=== PATIENT | male | born 1980 | race Caucasian/White ===

== ENCOUNTER 2016-04-18 16:44 | Emergency (ER) | payer BC ==
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
[2016-04-18] MEDS: KETOROLAC 30 MG/1 ML VIAL IVP ONE (17:10)
[2016-04-18] MEDS: LORazepam 2 MG/1 ML VIAL IVP ONE (17:11)
[2016-04-18] MEDS: NORMAL SALINE 10 ML SYRINGE FLUSH IVP PRN (17:13)
[2016-04-18] MEDS: CHLORPROMAZINE IM ONE (18:02)
[2016-04-18 18:36] VITALS: RESP 18; TEMP 97.2
[2016-04-18] MEDS: BACLOFEN 20 MG TABLET PO ONE (20:15)
== END 2016-04-18 20:19 | disposition home or self-care (01) ==
LOC: ER 16:44
DX: R06.6 Hiccough (principal)
CPT/HCPCS: 96372; 96374; 96375; 99282; 99283; J1885; J2360; J3230; J2060

== ENCOUNTER → 2016-04-21 | Outpatient (CLI) | payer OTHER, BC ==
--- NOTE | 2016-04-22 09:11 | DI ---
SPECT/CT L-SPINE W/O CONTRAST,04/21/2016 4:38 PM: Clinical History: Pelvic pain in a male. Previous Exam: None at this facility. Radiopharmaceutical: 29.0 mCi of technetium 99m MDP Findings: Multiple whole body images are obtained 2 hours after the administration of the radiopharmaceutical, and demonstrate normal uptake within the kidneys and urinary bladder. The chest also demonstrates multiple coned-down used. There are also coned-down views of the pelvis demonstrating no abnormally increased uptake. CT images were also obtained and fused, and demonstrate small bilateral pleural effusions. There is a groundglass density within the right upper lobe which is not well circumscribed, but measures approx imately 17 mm in diameter. There are no rib fractures. The thoracic spine is normal. There is a large amount of stool throughout the entire colon. There are several prominent lymph nodes within the right lower quadrant none of which are pathologic by size criteria. The appendix is crystal l. The urinary bladder is unremarkable. Impression: No focal increased uptake within the bony structures. A few mesenteric lymph nodes noted within the right lower quadrant which meet diagnostic criteria for mesenteric adenitis however, this is a clinical diagnosis. Large amount of dried stool throughout colon.
== END ==
LOC: NM 15:45
PROVIDERS: ATTEND Nurse Practitioner Family
DX: M54.41 Lumbago with sciatica, right side (principal); R10.2 Pelvic and perineal pain; J90 Pleural effusion, not elsewhere classified; I88.0 Nonspecific mesenteric lymphadenitis
CPT/HCPCS: 72131; 72192; A9503

== ENCOUNTER 2016-04-24 14:32 | Emergency (ER) | payer OTHER, BC ==
[2016-04-24 14:53] VITALS: RESP 14; TEMP 98.8
[2016-04-24] MEDS ORDERED: CHLORPROMAZINE IM ONE (14:54)
[2016-04-24] MEDS ORDERED: diphenhydrAMINE 25 MG CAPSULE PO ONE (14:55)
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
== END 2016-04-24 15:39 | disposition home or self-care (01) ==
LOC: ER 14:32
DX: R06.6 Hiccough (principal)
CPT/HCPCS: 96372; 99282 ×2; J3230; Q0163

== ENCOUNTER → 2016-05-03 | Outpatient (CLI) | payer OTHER, BC ==
--- NOTE | 2016-05-03 13:14 | DI ---
CERVICAL SPINE SERIES, 05/03/2016 9:38 AM: Clinical History: Positive Ela's reflex. Previous Exam: None at this facility. Upright AP and lateral and upright lateral flexion and extension views are submitted. The vertebral b odies are normal in height and size. The disc spaces are normal. Posterior alignment and lateral mass es are normal with flexion and extension maneuvers. C1 articulates normally with C2 and the occiput. Prevertebral soft tissue planes are normal. Reading: Normal cervical spine series. Flexion and extension maneuvers show no instability.
--- NOTE | 2016-05-03 20:47 | DI ---
THORACIC SPINE SERIES, 05/03/2016 9:38 AM: Clinical History: Positive Ela's reflex. Previous Exam: None at this facility. Upright AP and lateral and upright lateral flexion and extension views are submitted. The vertebral b odies are of normal height and size with normal disc spaces. Pedicles and posterior elements are norm al. There are no paravertebral masses. No instability is noted with flexion and extension maneuvers. The visualized portions of both lungs are normal. Reading: Normal thoracic spine series. There is no instability noted with flexion and extension maneuvers.
--- NOTE | 2016-05-03 21:08 | DI ---
LUMBAR SPINE SERIES, 05/03/2016 9:38 AM: Clinical History: Acute right-sided low back pain with right-sided sciatica. Previous Exam: None at this facility. Upright AP and lateral and upright lateral flexion and extension views are submitted. The vertebral b odies are of normal height and size. There is complete lumbarization of S1 with a disc space between S1 and S2. The lumbar disc spaces are of normal height. Posterior alignment is normal and there is no instability present with flexion and extension maneuvers although the patient actually did barely ch tiffnaie positions between flexion and extension. The pedicles and posterior elements are normal. Both SI joints are normal. Readin. Normal lumbar spine series. No instability is noted with flexion and extension maneuvers. 2. There is complete lumbarization of S1 and there is a disc space between S1 and S2.
--- NOTE | 2016-05-04 09:50 | DI ---
MRI CERVICAL SPINE SCAN, 05/03/2016 9:38 AM: Clinical History: Positive Ela's reflex. Previous Exam: None. Sequences: Sagittal T1and T2 weighted. Axial T2 PLUS and FE 3D DUAL. Coronal T1 scans through the upp er cervical spine. The vertebral bodies are of normal height and size. The disc spaces are of normal height and all cerv ical disc spaces show mild to moderate desiccation change. The cervical cord has a normal caliber and there is no evidence of an intramedullary focus of increased or decreased signal intensity. The cere bellar tonsils are in the normal position. The cervical disc spaces from C2-3 through C6-7 are normal . The remaining disc spaces from C7-T1 through T3-4 are also normal. Readin. There is no evidence of an intramedullary lesion or of an intradural extramedullary lesion. 2. The disc spaces from C2-3 through T3-4 are normal.
--- NOTE | 2016-05-04 12:41 | DI ---
MRI THORACIC SPINE SCAN, 05/03/2016 9:38 AM: Clinical History: Positive Ela's reflex. Previous Exam: None. Technique: Sagittal T1 and T2 weighted and STIR scans are supplemented with an axial angulated T1 and T2 weighted scans between T1 and T12-L1. The vitamin E marker capsule was placed over the point of m aximum pain indicated by the patient and this was at the level of T6. The vertebral bodies are of normal height and size. There is disc space narrowing at T4-5 and T5-6. T he remaining disc spaces are of normal height. There are no extradural lesions. There is no intradura l extramedullary or intramedullary lesion present. No facet arthropathy is identified. No paravertebr al masses are present. Reading: Chronic disc space narrowing at T4-5 and T5-6. The examination is otherwise normal.
== END ==
LOC: MRI 09:31
PROVIDERS: ATTEND Nurse Practitioner Family
DX: R29.2 Abnormal reflex (principal); M54.41 Lumbago with sciatica, right side; Q76.49 Other congenital malformations of spine, not associated with scoliosis
CPT/HCPCS: 72050; 72072; 72110; 72141; 72146

== ENCOUNTER → 2016-05-12 | Outpatient (CLI) | payer OTHER, BC ==
--- NOTE | 2016-05-12 17:15 | DI ---
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 Previous Exam: None at this facility. Sequences: Sagittal T1; Axial ANKITA T2 and FLAIR. Axial diffusion weighted images with ADC mapping were also performed. Axial flow sensitive black blood (FSBB) scans are performed. The 4th, 3rd, and lateral ventricles are of normal size, shape, position, and contour for this patien t's age. There are no focal areas of abnormally increased or decreased signal intensity. Susceptibili ty weighted imaging shows no evidence of hemosiderin deposition. There is no atrophy. There are no ex tracerebral mantels or shift of the midline structures. The paranasal sinuses are normal. Readin. Normal noncontrast MRI brain scan. 2. Diffusion weighted imaging with ADC mapping and susceptibility weighted imaging are normal.
== END ==
LOC: MRI 14:54
PROVIDERS: ATTEND Nurse Practitioner Family
DX: R41.3 Other amnesia (principal); S06.9X0S Unspecified intracranial injury without loss of consciousness, sequela
CPT/HCPCS: 70551

== ENCOUNTER → 2016-06-17 | Outpatient (CLI) | payer OTHER, BC ==
--- NOTE | 2016-06-17 15:10 | DI ---
RIGHT HIP JOINT INJECTION FOR MRI SCAN, 06/17/2016 1:02 PM: Clinical History: Right hip and groin pain. Previous Exam: None at this facility. A "time out" session was performed to verify the patient's name and date of prior to obtaining informed signed consent prior for this procedure. The patient was informed of benefits and risks, to include but not be limited to: allergies to medications (skin preparation agent, local anesthetic, an d contrast agent); joint infection; and joint pain following the procedure. The area was prepped with ChloraPrep solution. 1% lidocaine without epinephrine was used for intrader mal and subcutaneous local anesthesia. A 22 gauge spinal needle was introduced under fluoroscopy into the joint space with a single pass. No joint fluid could be aspirated. 12 mL of a mixture containing 2 mL of Omipaque 300 and 10 mL of normal saline was injected into the joint. Spot films of the area were obtained. The patient tolerated the procedure well and was transferred to the MRI scan suite for the MRI arthrogram. The patient was advised to watch for signs of an infection (including but not li mited to: redness, swelling, or fever). The patient was instructed to either contact the x-ray depart ment directly or to report to the Emergency Room immediately if problems arose. There is no evidence of adhesive capsulitis. The patient did exhibit only minimal motion. Limited vie ws of the articular surface of the femoral head are normal. Reading: Successful and uncomplicated right hip joint injection as above.
--- NOTE | 2016-06-17 22:58 | DI ---
MRI RIGHT HIP SCAN WITH INTRA-ARTICULAR CONTRAST, 06/17/2016 1:02 PM: Clinical History: Right hip and groin pain. Previous Exam: None at this facility. Technique: Axial fat saturated T2 weighted and oblique axial PD; coronal and sagittal PD and fat satu rated PD; anterior oblique coronal fat saturated PD. Normal saline was injected for intra-articular c ontrast with Omnipaque 300 used to verify correct injection of the normal saline under fluoroscopic c ontrol. There is no soft tissue or muscular abnormality noted. No abnormal bone signal pattern is identified. The femoral head is spherical in the alpha angle is 43 degrees. There is no dysplastic "bump". There is a labral tear in the anterosuperior quadrant from the equator to the 12:00 position and what may represent a contrecoup tear of the labrum in the posteroinferior quadrant from the equator to the 6:0 0 position. The ligamentum teres is intact. The iliopsoas, gluteus medius and minimus tendons are nor mal and there is no evidence of trochanteric bursitis. The anterior, superior, and posterior articula r surfaces of the femoral head and the acetabulum are well demonstrated on the coronal and oblique co anuradha projections and are normal. Readin. There are labral tears involving the anterosuperior quadrant from the equator to the 12:00 positi on with what may represent a contrecoup tear in the posteroinferior quadrant from the equator to the 6:00 position. 2. The cartilaginous surfaces of the hip joint, the surrounding ligaments and tendons, and the muscl es are normal.
== END ==
LOC: RAD 12:57
PROVIDERS: ATTEND Physician Assistant Surgical
DX: M25.551 Pain in right hip (principal); R10.84 Generalized abdominal pain; S73.191A Other sprain of right hip, initial encounter
CPT/HCPCS: 27093; 73722

== ENCOUNTER → 2016-07-12 | Outpatient (CLI) | payer OTHER, BC ==
--- NOTE | 2016-07-13 11:33 | DI ---
XR INJECTION PROCEDURE HIP,07/12/2016 1:10 PM: Clinical History: Tear of right acetabular labrum. Previous Exam: None at this facility. Procedure: Physical exam was performed revealing intense right hip pain with flexion worsening with i nternal rotation. Risks benefits and alternatives were explained to the patient and informed written consent obtained. The patient was placed supine on the fluoroscopy table and the right hip prepped and draped in usual sterile fashion. 1% lidocaine was used for local anesthesia. Under fluoroscopic guidance, the right hip joint was accessed with a 23-gauge spinal needle. A mixture of Omnipaque, normal saline and 1% lidocaine were then injected into the right hip. Placeme nt was confirmed with fluoroscopy. The needle was removed and subsequent Physical exam revealed very little residual pain on flexion or internal rotation. Findings: Images of the right hip demonstrate contrast in the needle within the right hip joint. Impression: 1. Successful right hip joint injection. 2. Near complete resolution of right hip pain after the intra-articular injection of lidocaine. This is most consistent with the source of pain being intra-articular.
== END ==
LOC: RAD 13:06
PROVIDERS: ATTEND Nurse Practitioner Family
DX: S73.191D Other sprain of right hip, subsequent encounter (principal)
CPT/HCPCS: 27093

== ENCOUNTER → 2016-07-28 | Outpatient (CLI) | payer OTHER, BC ==
--- NOTE | 2016-07-28 15:11 | DI ---
MRI CERVICAL SPINE SCAN, 07/28/2016 1:46 PM: Clinical History: C6 cervical radiculopathy. Previous Exam: 05/03/2016. Sequences: Sagittal T1and T2 weighted. Axial T2 PLUS and FE 3D DUAL. Coronal T1 scans through the upp er cervical spine. The vertebral bodies are of normal height and size. The cervical disc spaces are of normal height and all cervical disc spaces show mild to moderate desiccation change. The cervical cord and cerebellar tonsils are normal. The cervical disc spaces from C2-3 through C7-T1 show no canal or neural foramina l stenosis and there are notable gained or herniated discs. The disc spaces from T1-2 through T4-5 ar e also normal. Readin. There is no evidence of a disc herniation or of canal or neural foraminal stenosis from C2-3 thro ugh T4-5. 2. The cervical cord is normal. 3. There has been no interval change.
== END ==
LOC: MRI 13:40
PROVIDERS: ATTEND Nurse Practitioner Family
DX: M54.12 Radiculopathy, cervical region (principal)
CPT/HCPCS: 72141

== ENCOUNTER → 2016-08-19 | Outpatient (CLI) | payer BC ==
[2016-08-19 15:20] LABS: BASOPHILS # (AUTO) 0.03 10*3/UL; BASOPHILS % (AUTO) 0.3 % (0-1); EOSINOPHILS # (AUTO) 0.17 10*3/UL; EOSINOPHILS % (AUTO) 1.9 % (0-8); HEMOGLOBIN 15.5 g/dL (14.0-18.0); LYMPHOCYTES # (AUTO) 3.18 10*3/uL; MEAN CORPUSCULAR HEMOGLOBIN 30.3 PG (27-31); MEAN CORPUSCULAR HGB CONC 33.7 g/dL (33-37); MEAN PLATELET VOLUME 9.1 FL (7.4-12.2); MONOCYTES # (AUTO) 0.74 10*3/UL (0.3-0.8); MONOCYTES % (AUTO) 8.2 % (5-15); NEUTROPHILS # (AUTO) 4.83 10*3/UL; NEUTROPHILS % (AUTO) 53.9 % (50-80); RED BLOOD COUNT 5.11 10^6/uL (4.70-6.10)
[2016-08-19 15:21] LABS: COLOR,URINE YELLOW; PLATELET MORPHOLOGY COMMENT NORMAL MORPHOLOGY (NORM); RBC MORPHOLOGY COMMENT NORMAL MORPHOLOGY (NORM); URINE SAMPLE TYPE CLEAN CATCH URINE; WBC MORPHOLOGY COMMENT NORMAL MORPHOLOGY (NORM)
[2016-08-19 15:22] LABS: BILIRUBIN,URINE NEGATIVE (NEG); CLARITY,URINE CLEAR (CLEAR); GLUCOSE, URINE (UA) NEGATIVE (NEG); NITRATE,URINE NEGATIVE (NEG); OCCULT BLOOD,URINE NEGATIVE (NEG); PROTEIN,URINE TRACE mg/dl (NEG); UROBILINOGEN,URINE 0.2 EU/dL (0.2)
[2016-08-19 15:29] LABS: BLOOD UREA NITROGEN 19 mg/dL (7-22); CALCIUM 9.8 mg/dL (8.7-10.7); EST GLOMERULAR FILTRATION > 60 (>60 ml/min/1.73m(2))
== END ==
LOC: MOB LAB 13:51
PROVIDERS: ATTEND Nurse Practitioner Family
DX: Z01.818 Encounter for other preprocedural examination (principal); S73.191A Other sprain of right hip, initial encounter
CPT/HCPCS: 36415; 80048; 81003; 85025